=== PATIENT | female | born 1945 | race Caucasian/White ===

== ENCOUNTER 2022-12-16 11:52 | Inpatient (IN) | payer MEDICARE, OTHER ==
[2022-12-16] MEDS ORDERED: Bisacodyl 10 MG SUPP PR PRN (16:48)
[2022-12-16] MEDS ORDERED: Senokot S 8.6-50 MG TAB PO PRN (16:48)
[2022-12-16] MEDS ORDERED: Calcium Carbonate 500 MG ChewTAB PO PRN (16:48)
[2022-12-16] MEDS ORDERED: Acetaminophen 650 MG Suppository PR PRN (16:48)
[2022-12-16] MEDS ORDERED: Ondansetron ODT 4 MG TAB PO PRN (16:48)
[2022-12-16] MEDS ORDERED: Guaifenesin DM 100-10/5 ML UDCUP PO PRN (16:48)
[2022-12-16] MEDS ORDERED: HYDROcodone/Acetaminophen 5/325 mg Tablet PO PRN ×2 (16:48)
[2022-12-16] MEDS ORDERED: Bisacodyl 5 MG TAB PO PRN (16:48)
[2022-12-16] MEDS ORDERED: Cepastat Lozenges 1 LOZ PO PRN (16:48)
[2022-12-16] MEDS ORDERED: Benzonatate 100 MG CAP PO PRN (16:48)
[2022-12-16] MEDS ORDERED: Sodium Chloride 0.65% Nasal 44 ML BOT EA NARE PRN (16:48)
[2022-12-16] MEDS ORDERED: Artificial Tear Sol 15 ML BOT EA EYE PRN (16:48)
[2022-12-17] MEDS: Aspirin 81 mg Enteric Coated Tablet PO SCH ×3 (00:10→21:51)
[2022-12-17] MEDS: Ferrous Gluconate 324 MG TAB PO SCH ×3 (00:10→21:52)
[2022-12-17] MEDS: Famotidine 20 MG TAB PO SCH ×2 (00:10→21:51)
[2022-12-17] MEDS: Losartan Potassium 50 MG TAB PO SCH ×2 (00:11→21:51)
[2022-12-17] MEDS ORDERED: ROPIVACAINE FS SCH (00:15)
[2022-12-17] MEDS ORDERED: [UNRECOGNIZED DRUG - OTHER] FS SCH (00:15)
[2022-12-17] MEDS: Montelukast Sodium 10 mg Tablet PO SCH ×2 (01:10→21:51)
[2022-12-17 05:57] LABS: #Basophils 0.2 thou/uL (0.0-0.2); #Eosinphils 0.2 thou/uL (0.0-0.7); #Lymphocytes 2.5 thou/uL (1.20-3.40); #Monocytes 0.8 thou/uL (0.11-0.59); #Neutrophils 6.3 thou/uL (1.40-6.50); %Basophils 1.8 % (0.0-1.0); %Eosinophils 2.2 % (0.0-10.0); %Lymphocytes 25.2 % (21.0-51.0); %Monocytes 7.8 % (0.0-10.0); %Neutrophils 63.1 % (42.0-75.0); Hemoglobin 10.9 g/dL (12.0-16.0); Mean Corpuscular HGB CONC 31.9 g/dL (32.0-36.0); Mean Corpuscular Hemoglobin 28.4 pg (27.0-31.0); Mean Corpuscular Volume 88.9 fl (78.0-98.0); Mean Platelet Volume 7.8 fL (7.4-10.4); Platelet Count 187 10x3/uL (130-400); RBC Distribution Width 12.5 % (11.5-14.5); Red Blood Cell (RBC) Count 3.85 mill/uL (4.20-5.40)
[2022-12-17 06:10] LABS: ALT (SGPT) 10 U/L (8-55); AST (SGOT) 12 U/L (5-34); Albumin 3.3 g/dL (3.4-4.8); Alkaline Phosphatase 42 U/L (40-110); Anion Gap 13 mmol/L (10-20); BUN (Urea Nitrogen) 9 mg/dL (9.8-20.1); Bilirubin, Total 0.5 mg/dL (0.2-1.2); Calc. Creatinine Clearance 116 mL/min (70-130); Calcium 8.4 mg/dL (7.8-10.44); Carbon Dioxide 23 mmol/L (23-31); Chloride 107 mmol/L (98-107); Estimated GFR 91; Globulin 2.4 g/dL (2.4-3.5); Glucose 115 mg/dL (83-110); Potassium 3.9 mmol/L (3.5-5.1); Protein, Total 5.7 g/dL (5.8-8.1); Sodium 139 mmol/L (136-145)
[2022-12-17] MEDS: Hydrochlorothiazide 25 MG TAB PO SCH (08:52)
[2022-12-17] MEDS: Atenolol 25 MG TAB PO SCH (08:52)
[2022-12-17] MEDS: Polyethylene Glycol 3350 17 GM Packet PO SCH (08:53)
[2022-12-17] MEDS: Acetaminophen 325 MG TAB PO PRN (15:21)
[2022-12-17] MEDS ORDERED: traMADol HCl 50 MG TAB PO PRN (15:51)
[2022-12-17] MEDS: traMADol HCl 50 MG TAB PO PRN (17:22)
[2022-12-17] MEDS ORDERED: Atorvastatin Calcium 20 MG TAB PO SCH (22:45)
[2022-12-18] MEDS: Acetaminophen 325 MG TAB PO PRN ×2 (03:12→20:37)
[2022-12-18] MEDS: Aspirin 81 mg Enteric Coated Tablet PO SCH ×2 (07:51→20:36)
[2022-12-18] MEDS: Polyethylene Glycol 3350 17 GM Packet PO SCH (07:52)
[2022-12-18] MEDS: traMADol HCl 50 MG TAB PO PRN ×2 (07:53→14:29)
[2022-12-18] MEDS: Hydrochlorothiazide 25 MG TAB PO SCH (07:54)
[2022-12-18] MEDS: Atenolol 25 MG TAB PO SCH (07:54)
[2022-12-18] MEDS: Ferrous Gluconate 324 MG TAB PO SCH ×2 (07:55→20:36)
[2022-12-18 16:29] VITALS: BMI 33.0
[2022-12-18] MEDS: Famotidine 20 MG TAB PO SCH (20:36)
[2022-12-18] MEDS: Montelukast Sodium 10 mg Tablet PO SCH (20:36)
[2022-12-18] MEDS: Losartan Potassium 50 MG TAB PO SCH (20:36)
[2022-12-18] MEDS: Atorvastatin Calcium 20 MG TAB PO SCH (21:21)
[2022-12-19] MEDS: Acetaminophen 325 MG TAB PO PRN ×3 (03:06→21:11)
[2022-12-19 05:45] LABS: #Basophils 0.2 thou/uL (0.0-0.2); #Eosinphils 0.2 thou/uL (0.0-0.7); #Lymphocytes 2.1 thou/uL (1.20-3.40); #Monocytes 0.6 thou/uL (0.11-0.59); #Neutrophils 6.7 thou/uL (1.40-6.50); %Basophils 1.6 % (0.0-1.0); %Eosinophils 2.5 % (0.0-10.0); %Lymphocytes 21.6 % (21.0-51.0); %Monocytes 5.9 % (0.0-10.0); %Neutrophils 68.4 % (42.0-75.0); Hemoglobin 12.9 g/dL (12.0-16.0); Mean Corpuscular HGB CONC 32.7 g/dL (32.0-36.0); Mean Corpuscular Hemoglobin 28.8 pg (27.0-31.0); Mean Corpuscular Volume 88.2 fl (78.0-98.0); Mean Platelet Volume 6.8 fL (7.4-10.4); Platelet Count 246 10x3/uL (130-400); RBC Distribution Width 12.1 % (11.5-14.5); Red Blood Cell (RBC) Count 4.49 mill/uL (4.20-5.40); White Blood Cell (WBC) Count 9.8 10x3/uL (4.8-10.8)
[2022-12-19 05:51] LABS: Anion Gap 16 mmol/L (10-20); BUN (Urea Nitrogen) 11 mg/dL (9.8-20.1); Calc. Creatinine Clearance 93 mL/min (70-130); Calcium 8.8 mg/dL (7.8-10.44); Carbon Dioxide 23 mmol/L (23-31); Chloride 102 mmol/L (98-107); Estimated GFR 81; Glucose 197 mg/dL (83-110); Potassium 4.3 mmol/L (3.5-5.1); Sodium 137 mmol/L (136-145)
[2022-12-19] MEDS: Aspirin 81 mg Enteric Coated Tablet PO SCH ×2 (08:48→21:11)
[2022-12-19] MEDS: Hydrochlorothiazide 25 MG TAB PO SCH (08:49)
[2022-12-19] MEDS: Atenolol 25 MG TAB PO SCH (08:49)
[2022-12-19] MEDS: Polyethylene Glycol 3350 17 GM Packet PO SCH (08:49)
[2022-12-19] MEDS: Ferrous Gluconate 324 MG TAB PO SCH ×2 (08:49→21:11)
[2022-12-19] MEDS ORDERED: diphenhydrAMINE 25 MG CAP PO PRN (12:46)
[2022-12-19] MEDS: Losartan Potassium 50 MG TAB PO SCH (21:10)
[2022-12-19] MEDS: Famotidine 20 MG TAB PO SCH (21:10)
[2022-12-19] MEDS: Atorvastatin Calcium 20 MG TAB PO SCH (21:11)
[2022-12-19] MEDS: Montelukast Sodium 10 mg Tablet PO SCH (21:11)
[2022-12-20] MEDS ORDERED: ALPRAZolam 0.25 MG TAB PO PRN (00:41)
[2022-12-20] MEDS: Acetaminophen 325 MG TAB PO PRN ×2 (02:47→20:55)
[2022-12-20] MEDS: Ferrous Gluconate 324 MG TAB PO SCH ×2 (08:51→20:50)
[2022-12-20] MEDS: Hydrochlorothiazide 25 MG TAB PO SCH (08:51)
[2022-12-20] MEDS: Polyethylene Glycol 3350 17 GM Packet PO SCH (08:51)
[2022-12-20] MEDS: Atenolol 25 MG TAB PO SCH (08:51)
[2022-12-20] MEDS: Aspirin 81 mg Enteric Coated Tablet PO SCH ×2 (08:51→20:48)
[2022-12-20] MEDS: Losartan Potassium 50 MG TAB PO SCH (20:46)
[2022-12-20] MEDS: Melatonin 3 MG TAB PO SCH (20:48)
[2022-12-20] MEDS: Famotidine 20 MG TAB PO SCH (20:50)
[2022-12-20] MEDS: Atorvastatin Calcium 20 MG TAB PO SCH (20:50)
[2022-12-20] MEDS: Montelukast Sodium 10 mg Tablet PO SCH (20:50)
[2022-12-21] MEDS: Atenolol 25 MG TAB PO SCH (08:50)
[2022-12-21] MEDS: Aspirin 81 mg Enteric Coated Tablet PO SCH ×2 (08:50→21:03)
[2022-12-21] MEDS: Hydrochlorothiazide 25 MG TAB PO SCH (08:50)
[2022-12-21] MEDS: Ferrous Gluconate 324 MG TAB PO SCH ×2 (08:50→20:58)
[2022-12-21] MEDS: Polyethylene Glycol 3350 17 GM Packet PO SCH (08:50)
[2022-12-21] MEDS: Melatonin 3 MG TAB PO SCH (20:58)
[2022-12-21] MEDS: Famotidine 20 MG TAB PO SCH (20:58)
[2022-12-21] MEDS: Acetaminophen 325 MG TAB PO PRN (20:59)
[2022-12-21] MEDS: Losartan Potassium 50 MG TAB PO SCH (20:59)
[2022-12-21] MEDS: Montelukast Sodium 10 mg Tablet PO SCH (20:59)
[2022-12-21] MEDS: Gabapentin 300 MG CAP PO SCH (21:01)
[2022-12-21] MEDS: Atorvastatin Calcium 20 MG TAB PO SCH (21:02)
[2022-12-22] MEDS: Polyethylene Glycol 3350 17 GM Packet PO SCH (08:42)
[2022-12-22] MEDS: Ferrous Gluconate 324 MG TAB PO SCH ×2 (08:43→20:38)
[2022-12-22] MEDS: Atenolol 25 MG TAB PO SCH (08:43)
[2022-12-22] MEDS: Aspirin 81 mg Enteric Coated Tablet PO SCH ×2 (08:44→20:35)
[2022-12-22] MEDS: Hydrochlorothiazide 25 MG TAB PO SCH (08:44)
[2022-12-22 09:35] LABS: #Basophils 0.1 thou/uL (0.0-0.2); #Eosinphils 0.2 thou/uL (0.0-0.7); #Lymphocytes 1.7 thou/uL (1.20-3.40); #Monocytes 0.5 thou/uL (0.11-0.59); #Neutrophils 6.2 thou/uL (1.40-6.50); %Basophils 1.6 % (0.0-1.0); %Lymphocytes 19.7 % (21.0-51.0); %Monocytes 5.2 % (0.0-10.0); %Neutrophils 71.6 % (42.0-75.0); Hemoglobin 12.4 g/dL (12.0-16.0); Mean Corpuscular HGB CONC 32.4 g/dL (32.0-36.0); Mean Corpuscular Hemoglobin 28.7 pg (27.0-31.0); Mean Corpuscular Volume 88.4 fl (78.0-98.0); Mean Platelet Volume 6.7 fL (7.4-10.4); Platelet Count 290 10x3/uL (130-400); RBC Distribution Width 12.8 % (11.5-14.5); Red Blood Cell (RBC) Count 4.34 mill/uL (4.20-5.40); White Blood Cell (WBC) Count 8.6 10x3/uL (4.8-10.8)
[2022-12-22 09:37] LABS: Anion Gap 16 mmol/L (10-20); BUN (Urea Nitrogen) 14 mg/dL (9.8-20.1); Calc. Creatinine Clearance 82 mL/min (70-130); Calcium 9.1 mg/dL (7.8-10.44); Carbon Dioxide 23 mmol/L (23-31); Chloride 100 mmol/L (98-107); Estimated GFR 70; Glucose 229 mg/dL (83-110); Potassium 4.1 mmol/L (3.5-5.1); Sodium 135 mmol/L (136-145)
[2022-12-22] MEDS: Acetaminophen 325 MG TAB PO PRN (20:36)
[2022-12-22] MEDS: Montelukast Sodium 10 mg Tablet PO SCH (20:36)
[2022-12-22] MEDS: Melatonin 3 MG TAB PO SCH (20:36)
[2022-12-22] MEDS: Losartan Potassium 50 MG TAB PO SCH (20:37)
[2022-12-22] MEDS: Gabapentin 300 MG CAP PO SCH (20:38)
[2022-12-22] MEDS: Famotidine 20 MG TAB PO SCH (20:38)
[2022-12-22] MEDS: Atorvastatin Calcium 20 MG TAB PO SCH (20:39)
[2022-12-23 07:56] VITALS: BP 143/67; TEMP 97.9
[2022-12-23] MEDS: Acetaminophen 325 MG TAB PO PRN ×2 (08:32→13:01)
[2022-12-23] MEDS: Aspirin 81 mg Enteric Coated Tablet PO SCH (08:33)
[2022-12-23] MEDS: Ferrous Gluconate 324 MG TAB PO SCH (08:33)
[2022-12-23] MEDS: Atenolol 25 MG TAB PO SCH (08:33)
[2022-12-23] MEDS: Hydrochlorothiazide 25 MG TAB PO SCH (08:33)
[2022-12-23] MEDS: Polyethylene Glycol 3350 17 GM Packet PO SCH (08:34)
== END 2022-12-23 14:40 | disposition home or self-care (01) | DRG 561 ==
LOC: NAV ACUTE 22:37
PROVIDERS: ADMIT Family Medicine; ATTEND Family Medicine
DX: Z47.1 Aftercare following joint replacement surgery (principal); I10 Essential (primary) hypertension; E78.5 Hyperlipidemia, unspecified; K21.9 Gastro-esophageal reflux disease without esophagitis; E66.9 Obesity, unspecified; R53.1 Weakness; I25.10 Atherosclerotic heart disease of native coronary artery without angina pectoris; Z95.2 Presence of prosthetic heart valve; Z88.8 Allergy status to other drugs, medicaments and biological substances; Z79.899 Other long term (current) drug therapy; Z79.82 Long term (current) use of aspirin; Z87.891 Personal history of nicotine dependence; Z68.33 Body mass index [BMI] 33.0-33.9, adult; F41.9 Anxiety disorder, unspecified; G47.00 Insomnia, unspecified
CPT/HCPCS: 36415; 80048; 80053; 85025